=== PATIENT | female | born 1945 | race Caucasian/White ===

== ENCOUNTER 2016-08-21 06:20 | Inpatient (IN) | payer BC, OTHER ==
[~2016-08-21] VITALS: Ht 170.2 cm; Wt 108.6 kg
[~2016-08-21 06:20] MED LIST: ACID CONTROL150 MG PO; ALEVE220 MG PO; BENZONATATE100 MG PO; CHLORDIAZEPOXID10 MG PO; CRESTOR20 MG PO; DIOVAN HCT 11 TABLE1 PO; DIVALPROEX SOD125 M1 PO; ERGOCALCIF50000 UNIT PO; GABAPENTIN300 MG PO; GABAPENTIN400 MG PO; GLUCOPHAGE850 MG PO; IRON325 M1 PO; JUBLIA4 ML TP; KLONOPIN0.5 M1 PO; LEXAPRO10 MG PO; LIBRAX, CLI1 CAPSULE PO; LO-DOSE ASPIRIN81 M2 PO; MOTRIN400 MG PO; REFRESH OPTIVE10 ML BOTH EYES; REMERON45 MG PO; REQUIP1 MG PO; SYMBICORT60 INHALAT IH; SYNTHROID100 MCG PO; TEMAZEPAM30 MG PO; TERBINAFINE HC250 MG PO; TRIAMTERENE-HC1 EACH PO; TYLENOL EXTRA500 MG PO; VENTOLIN HFA18 GM IH; VITAMIN B122500 MCG PO; WELCHOL625 MG PO
[2016-08-21] MEDS ORDERED: BENZONATATE100 MG PO (07:42)
[2016-08-21] MEDS ORDERED: JUBLIA4 ML TP (07:43)
[2016-08-21] MEDS ORDERED: FLONASE16 G1 BOTH NARES (07:49)
[2016-08-21] MEDS ORDERED: BENADRYL ALLERG25 MG PO (07:51)
[2016-08-21] MEDS ORDERED: SALAGEN5 MG PO (07:52)
[2016-08-21] MEDS ORDERED: VALSARTAN160 MG PO (07:53)
[2016-08-21 08:07] VITALS: BP 128/82
[2016-08-21 08:19] LABS: POINT-OF-CARE METER ID UU14174212
[2016-08-21 11:42] LABS: POINT-OF-CARE METER ID UU13113675
[2016-08-21 15:36] VITALS: BP 111/59
[2016-08-21 16:23] LABS: POINT-OF-CARE METER ID UU13113712
[2016-08-21 17:30] VITALS: BP 100/55
[2016-08-21 20:10] VITALS: BP 115/88
[2016-08-21 22:18] LABS: POINT-OF-CARE METER ID UU13113712
[2016-08-22] VITALS (7 sets, daily range): BP systolic 125–160; BP diastolic 60–82
[2016-08-22 05:31] LABS: HEMATOCRIT 36.4 % (36.0-46.0); MCV 96.3 FL (83-99)
[2016-08-22 05:59] LABS: ANION GAP 12 MEQ/L (2-14); CHLORIDE 102 MEQ/L (99-109); GFR ESTIMATE (CALCULATED) 58 mL/min/; GLUCOSE 164 mg/dL (70-99); POTASSIUM 4.1 MEQ/L (3.7-5.4); SAMPLE HEMOLYSIS CHECK 0; SAMPLE ICTERIC CHECK 0; SAMPLE LIPEMIA CHECK 0; SODIUM 141 MEQ/L (136-147); UREA NITROGEN (BUN) 19 mg/dL (9-23)
[2016-08-22 11:13] LABS: POINT-OF-CARE METER ID UU13113712
[2016-08-22 16:10] LABS: POINT-OF-CARE METER ID UU13113712
[2016-08-22 21:59] LABS: POINT-OF-CARE METER ID UU13113712
[2016-08-23] VITALS (7 sets, daily range): BP systolic 122–141; BP diastolic 60–73
[2016-08-23 05:32] LABS: HEMATOCRIT 32.8 % (36.0-46.0); MCV 94.3 FL (83-99)
[2016-08-23] MEDS ORDERED: HYDROCODON-ACE1 EAC7 PO (07:39)
[2016-08-23] MEDS ORDERED: XARELTO10 MG PO (07:39)
[2016-08-23 07:52] LABS: POINT-OF-CARE METER ID UU13113712
[2016-08-23 11:48] LABS: POINT-OF-CARE METER ID UU13113712
[2016-08-23 16:14] LABS: POINT-OF-CARE METER ID UU13113712
[2016-08-24 07:37] VITALS: BP 121/59
== END 2016-08-24 14:13 | DRG 470 ==
LOC: 3WEST 06:20 → 2SOUTH 06:20 → 3WEST 13:09 → 3EAST 08-23 17:30
PROVIDERS: Orthopaedic Surgery; Physician Assistant
PROC: 0SRC0J9 Replacement of Right Knee Joint with Synthetic Substitute, Cemented, Open Approach (ICD-10-PCS; principal; 2016-08-21)
DX: M17.11 Unilateral primary osteoarthritis, right knee (principal); K21.9 Gastro-esophageal reflux disease without esophagitis; F41.9 Anxiety disorder, unspecified; J45.909 Unspecified asthma, uncomplicated; I12.9 Hypertensive chronic kidney disease with stage 1 through stage 4 chronic kidney disease, or unspecified chronic kidney disease; N18.2 Chronic kidney disease, stage 2 (mild); F32.9 Major depressive disorder, single episode, unspecified; M79.7 Fibromyalgia; E78.00 Pure hypercholesterolemia, unspecified; E78.5 Hyperlipidemia, unspecified; E03.9 Hypothyroidism, unspecified; K58.0 Irritable bowel syndrome with diarrhea; G47.33 Obstructive sleep apnea (adult) (pediatric); G25.81 Restless legs syndrome; M85.80 Other specified disorders of bone density and structure, unspecified site; Z68.36 Body mass index [BMI] 36.0-36.9, adult; B35.1 Tinea unguium
CPT/HCPCS: 80048; 82948; 85014; 85018; 94640; 94640 76; 94660; 94799; 99202; C1713; J0131; J0690; J1170; J1815; J1885; J2250; J2405; J2795; J3010; J7030; J7050; J7120; L1820